=== PATIENT | female | born 1970 | race Caucasian/White ===

== ENCOUNTER 2017-11-29 15:27 | Observation (INO) | payer OTHER ==
--- NOTE | 2017-11-29 15:30 | EDPHY ---
HPI/HX/ROS/PE/MDM Narrative: CHIEF COMPLAINT: Overdose HPI: The patient is a 47 y/o female with a history of anxiety arriving via EMS on an M1 hold placed by police after an overdose today. Per EMS the patient was found on the bathroom floor by a friend with an unlabeled bottle of alcohol next to her. When EMS arrived the patient admitted to taking 4 ER 60 mg Propranolol; however there are 5 Propranolol tablets missing from the bottle. It is unknown when she ingested these, but friends and family believe it could have been this morning or at 14:45, 45 minutes ago. EMS reports that the patient had normal vital signs with a blood pressure of 108/76. Upon my examination she states she feels "like hell". She admits to taking "maybe 4 Propranolol" but then states she only took "1 this morning". She also had a bottle of 2 mg Alprazolam next to her, but all of the tablets are accounted for. REVIEW OF SYSTEMS: Unable to obtain due to patient's current intoxicated state. PMH: Anxiety SOCIAL HISTORY: Going through a divorce, lives in [place] PHYSICAL EXAM: General: Patient appears intoxicated, is awake and talking, in no acute distress. ENT: Eyes are normal to inspection. ENT inspection normal. Neck: Normal inspection. Full range of motion. Respiratory: No respiratory distress. Breath sounds normal bilaterally. Cardiovascular: Regular rate and rhythm. Strong peripheral pulses. Normal cap refill. Abdomen: The abdomen is nontender to palpation. There are no peritoneal signs. There are normal bowel sounds. Back: Normal to inspection. No tenderness to palpation. Skin: Normal color. No rash. Warm and dry. Extremities: Normal appearance. Full range of motion. Neuro: Groggy. Normal motor function. Normal sensory function. Psych: Admits to self harm. Emotional affect. ED Course: 1527: I met EMS upon arrival 1533: EKG was ordered and interpreted by myself. Please see [facility] system for official reading. 1540: Patient admits to self harm by intentionally taking possibly 5 tabs of 60 mg ER Propranolol and appears intoxicated. She will need to be admitted to the ICU. 1615: Patient's blood alcohol level is 499. Her troponin is negative. 1635: I spoke with Poison Control regarding patient. The patient's case number is #[id number]. 1640: Consulted with hospitalist service, Dr. Cordon accepts admission of this patient. MDM: I personally spent a total of 45 minutes of critical care time in obtaining history, performing a physical exam, bedside monitoring of interventions, collecting and interpreting tests and discussion with consultants, and discussion with as well as obtaining further history from family members but not including time spent performing procedures. This time was exclusive of any involvement by Physician Parts Order And Stock Clerk. 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 This patient presents with intentional overdose of alcohol and extended release propranolol . She is currently showing no signs of beta-marilu effect, but given uncertainty of timing of ingestion and extended release tablets, she will need to be closely watched in the ICU before she can be medically cleared. - Data Points Laboratory Results: Laboratory Results 11/29/17 15:39 11/29/17 15:39 11/29/17 11/29/17 11/29/17 16:28 16:25 15:39 WBC RBC Hgb Hct MCV MCH MCHC RDW Plt Count MPV Neut % (Auto) Lymph % (Auto) Travis % (Auto) Eos % (Auto) Baso % (Auto) Nucleat RBC Rel Count Absolute Neuts (auto) Absolute Lymphs (auto) Absolute Monos (auto) Absolute Eos (auto) Absolute Basos (auto) Absolute Nucleated RBC Immature Gran % Immature Gran # Sodium Potassium Chloride Carbon Dioxide Anion Gap BUN Creatinine Estimated GFR Glucose Calcium Total Bilirubin 0.6 mg/dL mg/dL (0.1-1.4) Conjugated Bilirubin 0.5 mg/dL mg/dL (0.0-0.5) Unconjugated Bilirubin 0.1 mg/dL mg/dL (0.0-1.1) AST 125 IU/L H IU/L (14-46) ALT 65 IU/L H IU/L (9-52) Alkaline Phosphatase 80 IU/L IU/L (38-126) POC Troponin I 0.00 ng/mL ng/mL (0.00-0.08) Total Protein 7.4 g/dL g/dL (6.3-8.2) Albumin 4.4 g/dL g/dL (3.5-5.0) Beta HCG, Qual NEGATIVE Salicylates Acetaminophen Ethyl Alcohol 11/29/17 11/29/17 15:39 15:39 WBC 4.93 10^3/uL 10^3/uL (3.80-9.50) RBC 4.18 10^6/uL 10^6/uL (4.18-5.33) Hgb 14.4 g/dL g/dL (12.6-16.3) Hct 42.0 % % (38.0-47.0) MCV 100.5 fL H fL (81.5-99.8) MCH 34.4 pg H pg (27.9-34.1) MCHC 34.3 g/dL g/dL (32.4-36.7) RDW 12.4 % % (11.5-15.2) Plt Count 210 10^3/uL 10^3/uL (150-400) MPV 8.9 fL fL (8.7-11.7) Neut % (Auto) 44.7 % % (39.3-74.2) Lymph % (Auto) 42.0 % % (15.0-45.0) Travis % (Auto) 8.9 % % (4.5-13.0) Eos % (Auto) 2.6 % % (0.6-7.6) Baso % (Auto) 1.4 % % (0.3-1.7) Nucleat RBC Rel Count 0.0 % % (0.0-0.2) Absolute Neuts (auto) 2.20 10^3/uL 10^3/uL (1.70-6.50) Absolute Lymphs (auto) 2.07 10^3/uL 10^3/uL (1.00-3.00) Absolute Monos (auto) 0.44 10^3/uL 10^3/uL (0.30-0.80) Absolute Eos (auto) 0.13 10^3/uL 10^3/uL (0.03-0.40) Absolute Basos (auto) 0.07 10^3/uL 10^3/uL (0.02-0.10) Absolute Nucleated RBC 0.00 10^3/uL 10^3/uL (0-0.01) Immature Gran % 0.4 % % (0.0-1.1) Immature Gran # 0.02 10^3/uL 10^3/uL (0.00-0.10) Sodium 140 mEq/L mEq/L (135-145) Potassium 4.1 mEq/L mEq/L (3.3-5.0) Chloride 104 mEq/L mEq/L (97-110) Carbon Dioxide 24 mEq/l mEq/l (22-31) Anion Gap 12 mEq/L mEq/L (8-16) BUN 8 mg/dL mg/dL (7-23) Creatinine 0.7 mg/dL mg/dL (0.6-1.0) Estimated GFR > 60 Glucose 77 mg/dL mg/dL (70-100) Calcium 9.1 mg/dL mg/dL (8.5-10.4) Total Bilirubin Conjugated Bilirubin Unconjugated Bilirubin AST ALT Alkaline Phosphatase POC Troponin I Total Protein Albumin Beta HCG, Qual Salicylates < 1.0 mg/dL L mg/dL (2.0-20.0) Acetaminophen < 10 mcg/mL L mcg/mL (10-30) Ethyl Alcohol 499 mg/dL H* mg/dL (0-10) Medications Given: Discontinued Medications Sodium Chloride (Ns) 1,000 mls @ 0 mls/hr IV EDNOW ONE; Wide Open PRN Reason: Protocol Stop: 11/29/17 15:33 Last Admin: 11/29/17 16:01 Dose: 1,000 mls Point of Care Test Results: Chemistry 11/29/17 16:28 POC Troponin I 0.00 ng/mL ng/mL (0.00-0.08) General Time Seen by Provider: 11/29/17 15:27 Initial Vital Signs: Initial Vital Signs Temperature (C) 37.0 C 11/29/17 15:54 Heart Rate 72 11/29/17 15:54 Respiratory Rate 16 11/29/17 15:54 Blood Pressure 117/79 11/29/17 15:54 O2 Sat (%) 85 L 11/29/17 15:54 O2 Delivery Mode Nasal Cannula O2 (L/minute) 2 Allergies/Adverse Reactions: No Known Allergies Allergy (Unverified 11/29/17 15:53) Home Medications: Medication Instructions Recorded ALPRAZolam [Xanax] 1 mg PO BID PRN 11/29/17 Propranolol Sr [Inderal LA 60mg 60 mg PO DAILY 11/29/17 (*)] chlordiazePOXIDE [Librium 25 mg 25 mg PO TID #10 cap 11/30/17 (*)] Departure - Departure Disposition: [facility] Clinical Impression: Propranolol overdose Qualifiers: Encounter type: initial encounter Injury intent: intentional self-harm Qualified Code(s): T44.7X2A - Poisoning by beta-adrenoreceptor antagonists, intentional self-harm, initial encounter Alcohol intoxication Qualifiers: Complication of substance-induced condition: with delirium Qualified Code(s): F10.921 - Alcohol use, unspecified with intoxication delirium Condition: Good Report Scribed for: Musa Renae Report Scribed by: Kyara Bazzi Date of Report: 11/29/17 Time of Report: 15:31 Physician Review and Approval Statement: Portions of this note were transcribed by an ED scribe. I personally performed the history, physical exam, and medical decision making; and confirm the accuracy of the information in the transcribed note.
[2017-11-29] MEDS ORDERED: NS 1,000 ML IV ONE (15:32)
--- NOTE | 2017-11-29 15:35 | CPEKG ---
Heart Rate: 64 RR Interval: 938 P-R Interval: 164 QRSD Interval: 86 QT Interval: 436 QTC Interval: 450 P [place]: 38 QRS [place]: 43 T Wave [place]: 67 EKG Severity - NORMAL ECG - EKG Impression: SINUS RHYTHM Electronically Signed By: Musa Renae 30-Nov-2017 17:00:48
[2017-11-29 15:47] LABS: PLATELET COUNT 210 10^3/uL (150-400)
[2017-11-29] MEDS ORDERED: ONDANSETRON DISINTEGRATING 4 MG TAB PO PRN (18:29)
[2017-11-29] MEDS ORDERED: ACETAMINOPHEN 325 MG TAB PO PRN (18:29)
[2017-11-29] MEDS ORDERED: ALBUTEROL 3 ML DEYVIAL IH PRN (18:29)
[2017-11-29] MEDS ORDERED: LORazepam 0.5 MG TAB PO PRN (18:29)
[2017-11-29] MEDS ORDERED: PROMETHAZINE HCL 25 MG/ML INJ IVP PRN (18:29)
[2017-11-29] MEDS ORDERED: oxyCODONE IR 5 MG TAB PO PRN (18:29)
[2017-11-29] MEDS ORDERED: ONDANSETRON 4 MG/2 ML VIAL IVP PRN (18:29)
[2017-11-29] MEDS ORDERED: LORazepam 2 MG/ML INJ IVP PRN (18:29)
[2017-11-29] MEDS: NS 1,000 ML IV SCH (19:15)
--- NOTE | 2017-11-29 19:29 | PDGENHP ---
History and Physical - Chief Complaint "my mother keeps talking and talking" - History of Present Illness 47 yo F with hx of etoh abuse and anxiety and depression per chart review presenting with reportedly intentional alcohol and propranolol overdose as part of a suicide attempt. At the time of my evaluation patient is intoxicated and belligerent and will not provide any information other than she feels her mother keeps "talking and talking" and that she is "fine." Patients mother is not present at bedside currently. Patient denies any pain, any sob, any nausea or vomiting. She denies active suicidality. History Information - Allergies/Home Medication List Allergies/Adverse Reactions: No Known Allergies Allergy (Unverified 11/29/17 15:53) Home Medications: ALPRAZolam [Xanax] 1 mg PO BID PRN 11/29/17 [Last Taken Unknown] Propranolol Sr [Inderal LA 60mg (*)] 60 mg PO DAILY 11/29/17 [Last Taken ] I have personally reviewed and updated: family history, medical history, social history, surgical history - Past Medical History psychiatric history - Surgical History Additional surgical history: none per chart review - Family History Additional family history: none noted per chart review, patient unable to provide details - Social History Smoking Status: Never smoked Alcohol Use: Heavy Drug Use: Other (unknown) Additional social history: Patient has told nursing she has 5 children, her living situation is otherwise unclear, she reports being surprised that she is in [place] currently Review of Systems Review of Systems: limited by patients intoxication ROS: 10pt was reviewed & negative except for what was stated in HPI & below Physical Exam Physical Exam: Temp Pulse Resp BP Pulse Ox 36.9 C 76 20 101/60 90 L 11/29/17 18:44 11/29/17 19:00 11/29/17 19:00 11/29/17 19:00 11/29/17 19:00 O2 (L/minute) 2 Constitutional: no apparent distress, appears nourished, unkempt Eyes: PERRL, anicteric sclera Ears, Nose, Mouth, Throat: moist mucous membranes Cardiovascular: regular rate and rhythym, No edema Respiratory: no respiratory distress, no rales or rhonchi Gastrointestinal: normoactive bowel sounds, soft, non-tender abdomen Skin: warm Musculoskeletal: full muscle strength Neurologic: AAOx3 Psychiatric: depressed, flat affect, other (argumentative) Lab Data & Imaging Review 11/29/17 15:39 11/29/17 15:39 WBC 4.93 10^3/uL (3.80-9.50) 11/29/17 15:39 RBC 4.18 10^6/uL (4.18-5.33) 11/29/17 15:39 Hgb 14.4 g/dL (12.6-16.3) 11/29/17 15:39 Hct 42.0 % (38.0-47.0) 11/29/17 15:39 MCV 100.5 fL (81.5-99.8) H 11/29/17 15:39 MCH 34.4 pg (27.9-34.1) H 11/29/17 15:39 MCHC 34.3 g/dL (32.4-36.7) 11/29/17 15:39 RDW 12.4 % (11.5-15.2) 11/29/17 15:39 Plt Count 210 10^3/uL (150-400) 11/29/17 15:39 MPV 8.9 fL (8.7-11.7) 11/29/17 15:39 Neut % (Auto) 44.7 % (39.3-74.2) 11/29/17 15:39 Lymph % (Auto) 42.0 % (15.0-45.0) 11/29/17 15:39 Hopkins % (Auto) 8.9 % (4.5-13.0) 11/29/17 15:39 Eos % (Auto) 2.6 % (0.6-7.6) 11/29/17 15:39 Baso % (Auto) 1.4 % (0.3-1.7) 11/29/17 15:39 Nucleat RBC Rel Count 0.0 % (0.0-0.2) 11/29/17 15:39 Absolute Neuts (auto) 2.20 10^3/uL (1.70-6.50) 11/29/17 15:39 Absolute Lymphs (auto) 2.07 10^3/uL (1.00-3.00) 11/29/17 15:39 Absolute Monos (auto) 0.44 10^3/uL (0.30-0.80) 11/29/17 15:39 Absolute Eos (auto) 0.13 10^3/uL (0.03-0.40) 11/29/17 15:39 Absolute Basos (auto) 0.07 10^3/uL (0.02-0.10) 11/29/17 15:39 Absolute Nucleated RBC 0.00 10^3/uL (0-0.01) 11/29/17 15:39 Immature Gran % 0.4 % (0.0-1.1) 11/29/17 15:39 Immature Gran # 0.02 10^3/uL (0.00-0.10) 11/29/17 15:39 Sodium 140 mEq/L (135-145) 11/29/17 15:39 Potassium 4.1 mEq/L (3.3-5.0) 11/29/17 15:39 Chloride 104 mEq/L (97-110) 11/29/17 15:39 Carbon Dioxide 24 mEq/l (22-31) 11/29/17 15:39 Anion Gap 12 mEq/L (8-16) 11/29/17 15:39 BUN 8 mg/dL (7-23) 11/29/17 15:39 Creatinine 0.7 mg/dL (0.6-1.0) 11/29/17 15:39 Estimated GFR > 60 11/29/17 15:39 Glucose 77 mg/dL (70-100) 11/29/17 15:39 Calcium 9.1 mg/dL (8.5-10.4) 11/29/17 15:39 Total Bilirubin 0.6 mg/dL (0.1-1.4) 11/29/17 16:25 Conjugated Bilirubin 0.5 mg/dL (0.0-0.5) 11/29/17 16:25 Unconjugated Bilirubin 0.1 mg/dL (0.0-1.1) 11/29/17 16:25 AST 125 IU/L (14-46) H 11/29/17 16:25 ALT 65 IU/L (9-52) H 11/29/17 16:25 Alkaline Phosphatase 80 IU/L (38-126) 11/29/17 16:25 POC Troponin I 0.00 ng/mL (0.00-0.08) 11/29/17 16:28 Total Protein 7.4 g/dL (6.3-8.2) 11/29/17 16:25 Albumin 4.4 g/dL (3.5-5.0) 11/29/17 16:25 Beta HCG, Qual NEGATIVE 11/29/17 15:39 Salicylates < 1.0 mg/dL (2.0-20.0) L 11/29/17 15:39 Acetaminophen < 10 mcg/mL (10-30) L 11/29/17 15:39 Ethyl Alcohol 499 mg/dL (0-10) H* 11/29/17 15:39 Visualized and Interpreted EKG results: Yes EKG Interpretation: Positive for: normal sinsus rhythm Assessment & Plan Assessment: Alcohol intoxication (Acute) Propranolol overdose (Acute) 47 yo F with PMH of etoh abuse, depression/anxiety presents s/p SA with etoh/BB overdose # intentional overdose: reportedly patient drank a large amount of alcohol and took 5 tabs of extended release propranolol. At this time other than acute intoxication she has no physical exam abnormalities. She is in NSR with rate in the 60s. Half life is 8-11 hours and therefore she will be watched overnight in ICU on telemetry, poison control has been notified and are available to answer any questions--case number noted in ER report # suicide attempt: as above, patient currently on M1 hold, unable to assess severity of attempt and continued SI given her acute intoxication, when medically cleared she will need TLC eval # etoh abuse: unable to obtain more history on her use pattern at this time, will monitor for s/s of withdrawal, BAL on arrival 499 # transaminitis: suspect mild alc hep in setting of above, will repeat LFTs in am # observation status, if no overnight events and patient cleared by TLC, she may discharge in am Patient new to my care. Care plan reviewed with ER doctor including plans for tele monitoring overnight.
[2017-11-30] MEDS: NS 1,000 ML IV SCH (06:19)
[2017-11-30 06:20] LABS: PLATELET COUNT 140 10^3/uL (150-400)
[2017-11-30] MEDS ORDERED: D50W 25 GM/50 ML SYR IVP ONE (06:41)
[2017-11-30] MEDS ORDERED: D5W NS 1,000 ML IV SCH (06:45)
[2017-11-30] MEDS ORDERED: PROPRANOLOL SR 60 MG CAP PO SCH (11:15)
[2017-11-30] MEDS ORDERED: chlordiazePOXIDE 25 MG CAP PO ONE (11:20)
[2017-11-30 11:36] VITALS: BP 129/73
--- NOTE | 2017-11-30 14:01 | GDS ---
[f rep st] DISCHARGE SUMMARY DISCHARGE DIAGNOSES: 1. Intentional overdose of alcohol and propranolol. 2. Alcohol abuse. 3. Depression and anxiety. HISTORY OF PRESENT ILLNESS: For details please see the history and physical dated November 29, 2017. In brief, the patient is a 47-year-old female with history of anxiety, depression, and alcohol abuse who presented to the emergency department after she intentionally overdosed on alcohol and propranolo l after her left her. She was admitted to the hospital for further management. HOSPITAL COURSE: The patient was admitted to the intensive care unit on an M1 hold. Her blood alcoh ol on arrival was 499. She had no issues with bradycardia. She had a mild transaminitis, likely rel ated to alcohol-induced hepatitis. This remained stable. In the morning she is mentating clearly, t ree is a bit tremulous. She states she has never been suicidal, but she admits to self-medicating with alcohol and using alcohol and propranolol yesterday to numb her pain. She does acknowledge this is a form of self-harm. She is medically cleared and TLC evaluation ensued. They recommended she t agueda to inpatient Behavioral Health unit for ongoing treatment of her anxiety, depression and alco hol abuse. I will provide a few days of p.o. Librium to mitigate any potential withdrawal issues. S he can also continue her usual dose of propranolol for her anxiety and tremor, although must proceed with caution given her inclination to take extra propranolol. DISPOSITION: Patient is discharged to inpatient Behavioral psych in stable condition. DISCHARGE MEDICATIONS: Please see [facility] for complete updated outpatient. New medications at discharge include Librium 25 mg p.o. 3 times daily for 2 days, then 25 mg p.o. twi ce daily for 2 days then off. She can continue p.r.n. Xanax and propranolol, her previous outpatient medications if deemed safe by her psychiatry team. /[id number]/MODL
== END 2017-11-30 12:45 ==
LOC: EEVIPCON 16:44 → INTOOBSV 16:44 → F2N 18:31
PROVIDERS: ADMIT Internal Medicine; ATTEND Hospitalist
DX: T44.7X2A Poisoning by beta-adrenoreceptor antagonists, intentional self-harm, initial encounter (principal); T51.0X2A Toxic effect of ethanol, intentional self-harm, initial encounter; F10.10 Alcohol abuse, uncomplicated; F32.9 Major depressive disorder, single episode, unspecified; F41.9 Anxiety disorder, unspecified
CPT/HCPCS: 93005; G0378; 80305; 84484-PO; G0480

== ENCOUNTER 2017-11-30 13:10 | Inpatient (IN) | payer OTHER ==
[2017-11-30] MEDS ORDERED: ACETAMINOPHEN 325 MG TAB PO PRN (13:40)
[2017-11-30] MEDS ORDERED: NICOTINE POLACRILEX 2 MG GUM B PRN (13:40)
[2017-11-30] MEDS ORDERED: MAG HYDROX/AL HYDROX/SIMETH 30 ML UDCUP PO PRN (13:42)
[2017-11-30] MEDS ORDERED: PROMETHAZINE HCL 25 MG TAB PO PRN (13:42)
[2017-11-30] MEDS ORDERED: chlordiazePOXIDE 25 MG CAP PO PRN (13:42)
[2017-11-30] MEDS ORDERED: MAGNESIUM HYDROXIDE 30 ML UDCUP PO PRN (13:42)
[2017-11-30] MEDS ORDERED: PROPRANOLOL HCL 20 MG TAB PO SCH (14:15)
--- NOTE | 2017-11-30 15:21 | ASMTBHMTP ---
Master Treatment Plan Master Treatment Plan Answers: Depressed Mood without for: Suicidal Ideation Date: 11/30/2017 Diagnosis on Admission: Propranolol overdose Expected length of stay: 3-5 Days Reason for admission: Notes: Propranolol overdose Patient's stated presenting problems: Notes: left three weeks ago and emptied bank accounts. Was prescribed propranolol by psychiatrist for tremors. Has been self-medicating with alcohol recently. started harassing through text messages, and pt. took 5x amount of propranolol with alcohol. Family then brought pt. to hospital. Patient's goals for treatment: Notes: Work on self care Needs to learn how to carve out "me time". Patient's strengths: Notes: Outgoing personality, trustworthy, and dive in and get things done. Identify supports outside of hospital: Notes: Friend Kate, friend Anel, Friend/coworker Amir, and dad Discharge criteria: Notes: Suicidal ideation will resolve and patient will have a plan to safely manage recurrent suicidal ideation. Initial disposition plan/considerations: Notes: It depends. Needs to learn how to carve out "me time". Master Treatment Plan Required Signatures Psychiatrist signature: Answers: Psychiatrist: RN on-shift signature: Answers: RN: Patient signature: Answers: Patient: Date Signed: 11/30/2017 02:44 PM Electronically Signed By:Pretty Keating
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
[2017-11-30] MEDS: chlordiazePOXIDE 25 MG CAP PO SCH ×3 (16:04→21:17)
--- NOTE | 2017-11-30 17:38 | BAPA ---
[f rep st] ADMISSION PSYCHIATRIC ASSESSMENT DATE OF SERVICE: 11/30/2017 CHIEF COMPLAINT: "Ended up in the hospital because I drank and took 5 propranolol." HISTORY OF PRESENT ILLNESS: Per [facility] evaluation dated 11/30/2017, the patient is currently on an M1 hold. The M1 hold start date was 11/29/2017 at 2:55 p.m. The patient stated to the [facility] biogeographer, "I wasn't trying to kill myself. I was trying to numb emotional pain. My left 2 weeks ago and has not been back." The patient was admitted involuntary and is on an M1 hold due to being a danger to herself and is hospitalized for safety, crisis stabilization, and medication evaluation. The patient describes the circumstances that led to current hospitalization as her left her about 3 weeks ago. The patient reports it is her 's MO to just leave because he knows this is a big trigger to her. The patient states that asked for divorce. The patient reports she was dealing with this stress by drinking. States that she did drink too much and did take 5 tablets of propranolol. However, patient states she was not making an attempt to end her life. The patient reports current mental illness as none. The patient states current alcohol and/or substance abuse that contributed to current hospitalization as alcohol. The patient denies any current psychiatric symptoms. The patient is currently experiencing withdrawal symptoms from alcohol and does currently have bilateral hand tremors. The patient reports she also feels somewhat anxious due to the current withdrawal. The patient describes abuse history as none. The patient describes current psychiatric symptoms are impacting managing her day-to-day life described as, she is currently taking care of household responsibilities without difficulty. Reports she is currently taking a break from work. States she is socializing with friends and she currently has discord with her . The patient reports hobbies as running, skiing, snowboarding and hiking, and states she is generally satisfied with her life. The patient denies current suicidal ideation , denies current homicidal ideation, and denies current self-injurious ideation. The patient reports protective factors or reasons to live as her children. She reports her future goals as not to self medicate with alcohol, and she describes her family as remains emotional support system. The patient reports she currently sees a primary care provider and she also sees a psychiatrist for Therapy. PAST PSYCHIATRIC HISTORY: The patient describes the following psychiatric history: Patient reports past diagnosis of generalized anxiety disorder. Patient reports she has never been on psychotropic medications. Describes a history of seeing a primary care provider and a psychiatrist. Patient does report history of hospitalization due to bulimia. Reports this occurred about 25 years ago while she was in college. The patient denies any history of withdrawal from drugs or alcohol. Denies history of suicide ideation or suicide attempts. The patient denies history of self-injurious behavior. ALLERGIES: No known drug allergies. CURRENT MEDICATIONS: When the patient arrived on this unit she was provided a prescription of Librium 25 mg p.o. three times daily and that medication will be continued here. PAST MEDICAL HISTORY: The patient describes the following: The patient reports she has no reason to believe she could be . States that she had a hysterectomy. The patient denies any neurological history, any major illnesses or any major hospitalizations. SOCIAL HISTORY: The patient describes the following social history: The patient reports she was born in [place] and her parents were at the time of her and are still today. The patient reports she was raised the majority of her life in [place] by both parents. The patient describes current living in [place], [place] with her and her children. The patient states she met all developmental milestones growing up and reports no history of learning delays or difficulties. The patient describes her sexual orientation as heterosexual. States she is currently for 6 years. Has been in the past twice and twice. The patient reports that she has 5 children. 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 The patient reports highest level of education as a graduate degree in exercise physiology. The patient reports no duty in her history. Describes her orthodoxy and spiritual practice as Sabianism, and states she is currently not facing any legal charges. SUBSTANCE USE HISTORY: The patient reports she drinks about 5 times per week. Reports sometimes she drinks to resolve the tremors she experiences. States she gets drunk at least 1 time per week and usually drinks about 3 drinks per occasion. Patient denies all other illicit substances, including nicotine, marijuana, meth, cocaine, crack, heroin, prescription medication abuse, and all other substances of abuse. FAMILY PSYCHIATRIC HISTORY: The patient describes the following family psychiatric history: The patient reports her father suffered from general anxiety disorder and panic disorder. The patient reports no history of anyone in her family attempting or completing suicide, and reports no family history of substance or alcohol abuse. ADMISSION LABORATORIES AND STUDIES: CBC from the ER: Red blood cells low at 3.80, MCV elevated at 101.6, MCH elevated at 35, platelet count low at 140, neutrophils percentage high at 75.3%, lymphocyte percentage low at 14.8%, absolute lymphocytes auto low at 0.96. Chemistry: test negative, carbon dioxide low at 19, glucose low at 57. Point of care glucose high at 200 , calcium is low at 8, total bilirubin elevated at 1.5, AST elevated at 113 and ALT elevated at 60. Toxicology non-negative for benzodiazepines, non-negative for marijuana, and ethyl alcohol was elevated at 499. MENTAL STATUS EXAM: The patient is a well-nourished female looking older than chronological age. The patient's attire is appropriate, dress is casual and neat and clean. Grooming status is appropriate and clean. Ambulation is independent. Gait is normal and coordinated. Posture is normal and relaxed. Eye contact is appropriate and adequate. Motor activity is appropriate with purposeful organized and coordinated movements. Some involuntary movements noted as the patient has bilateral hand tremors. Attitude is cooperative and friendly. The patient appears attentive and relates well to this interviewer. Language production is spontaneous. Rate, rhythm and volume are normal. Articulation is clear. The patient reports mood as anxious with adequately arranged and congruent affect. The patient's thought process is linear and logical with no loose associations, tangential thought, thought blocking, concrete thinking, or any other signs of formal thought disorder. The patient does not report suicidal, homicidal thoughts, ideas, or plans. The patient denies auditory visual hallucinations. The patient denies delusions. The patient does not appear to be attending to internal stimuli. The patient is oriented to person, place, time, and situation. The patient's attention and concentration are adequate. The patient's insight and judgment are impaired. There is no evidence of gross cognitive dysfunction at any point during the interview, and no evidence of apparent dysfunction in recent or remote memory noted. DIAGNOSES: 1. Alcohol use disorder, severe. 2. General anxiety disorder. 3. Alcohol intoxication FORMULATION: This is a 47-year-old female, , employed, living in [place], [place] with her and children, who presents to the hospital involuntary due to risk of being a harm to herself and is currently on an M1 hold. The patient requires continued inpatient care because of current alcohol withdrawal and recent crisis that led to this hospitalization. The patient presents with problems of generalized anxiety disorder, alcohol use disorder and mood instability that have been steadily increasing over the past several weeks. The exacerbation of symptoms was preceded by the patient's leaving her and asking for a divorce. The patient has a past psychiatric history of generalized anxiety disorder and reports that this has never been treated with psychotropic medications. Based on the patient's history and current presentation, her diagnoses are generalized anxiety disorder and alcohol use disorder, severe. The patient is at a moderate to high suicide safety risk due to current alcohol withdrawal, anxiety, recent crisis. Protective factors while hospitalized include ongoing safety checks, active involvement in treatment, and support from our treatment team. The patient could benefit from inpatient hospitalization for safety, crisis stabilization, and medication evaluation. PLAN: (1) Psychotropic medications: Librium 25 mg p.o. three times daily, CIWA protocol, Librium 25-50 mg q.4 hours p.r.n. for alcohol withdrawal. (2) Labs: A1c, fasting lipid panel, TSH. (3) Therapy: milieu and group (4) Further investigation including gathering information from patients relatives and review of past case records (5) Continued evaluation and monitoring will be ongoing during the course of patients inpatient hospitalization to inform treatment, to determine if adjustments in medication regimen may benefit patients symptoms, and for discharge planning (6) Safety plan and follow-up outpatient appointments to be established prior to discharge (7) Confer with inpatient treatment team regarding initial treatment plan (8) Review informed consent and recommendations for psychotropic medication treatment listed below now, during the course of hospitalization, and during discharge interview ESTIMATED LENGTH OF STAY: 1-3 days PSYCHOTROPIC MEDICATION TREATMENT INFORMED CONSENT and RECOMMENDATIONS: Review nature of condition, diagnosis, and prognosis. Review nature and purpose of psychotropic medication treatment. Review type of psychotropic medications being ordered. Review risk and benefits of psychotropic medication treatment. Review probable length of time will need to take medications. Review risk and benefits of not undergoing psychotropic medication treatment. Review alternative treatments to psychotropic medications. Review psychotropic medications contraindications, drug-drug interactions, side effects, and importance of reporting any side effects to a psychiatric provider or nurse during inpatient hospitalization, and upon discharge to patients psychiatric outpatient provider, primary care provider, or other health medicare insurance specialist. Review importance of asking a nurse, psychiatric provider, or primary care provider any questions or problems concerning the psychotropic medications. Verify patient understands the information that has been provided, and understands, accepts, and agrees to psychotropic medications. Review patients safety plan and importance of patient to communicate to staff while hospitalized if patient is ever a danger to self/others, or unable to care for self, and upon discharge, the importance for patient to contact [facility] or [facility], or go to the nearest emergency room, if patient is ever a danger to self/others, or unable to care for self. Recommend that upon discharge patient establish medication management treatment with a psychiatric provider, establishes routine therapy appointments, and follow-up with primary care provider. Verify patient understands and agrees to these recommendations. /[id number]/MODL MTDD
[2017-12-01] MEDS: FOLIC ACID 1 MG TAB PO SCH (09:02)
[2017-12-01] MEDS: THIAMINE HCL 100 MG TAB PO SCH (09:02)
[2017-12-01] MEDS: SERTRALINE HCL 25 MG TAB PO SCH (09:02)
[2017-12-01] MEDS: chlordiazePOXIDE 25 MG CAP PO SCH ×2 (09:02→21:32)
[2017-12-01] MEDS: MULTIVITAMINS 1 EACH TAB PO SCH (09:02)
--- NOTE | 2017-12-01 09:19 | PDMN ---
Medical Necessity Medical necessity: pt admitted on M1 hold, danger to self, crisis stabilization , anxiety med evaluation.
--- NOTE | 2017-12-01 11:43 | SOAPPROG ---
SOAP Progress Note Assessment/Plan: Assessment: FREDRICK and ETOH withdrawal. Patient is improving (see subjective/objective note). Patient is not safe to discharge at this time as patient continues to exhibit and express signs of withdrawal and anxiety. Patient requires continued inpatient care for observation, and requires inpatient level of care to stabilize in order to no longer be a danger to herself. Patient could benefit from continued inpatient hospitalization for crisis stabilization, safety, and medication evaluation. Plan: Review psychotropic medication treatment informed consent and recommendations. After reviewing options, risk and benefits, patient agrees to continue medications with the following changes. Medication changes include starting trial of sertraline 25 mg po QAM for anxiety and Trazodone 100 mg po QHS for insomnia related to anxiety. No other medication changes at this time as more time is needed to determine ongoing tolerability and efficacy. Plan is to continue to observe patient for response and side effects from medications, and ongoing monitoring and evaluation. Next steps are for patient to meet with child care team lead to plan a safe discharge plan and establish outpatient services for ongoing treatment. Consider discharge on Thursday if patient is in stable condition, safe, and has a safe discharge plan. PSYCHOTROPIC MEDICATION TREATMENT INFORMED CONSENT and RECOMMENDATIONS: Review nature of condition, diagnosis, and prognosis. Review nature and purpose of psychotropic medication treatment. Review type of psychotropic medications being ordered. Review risk and benefits of psychotropic medication treatment. Review probable length of time patient will need to take medications. Review risk and benefits of not undergoing psychotropic medication treatment. Review alternative treatments to psychotropic medications. Review psychotropic medications contraindications, drug-drug interactions, side effects, and importance of reporting any side effects to a psychiatric provider or nurse during inpatient hospitalization, and upon discharge to patients psychiatric outpatient provider, primary care provider, or other health palliative care nurse. Review importance of asking a nurse, psychiatric provider, or primary care provider any questions or problems concerning the psychotropic medications. Verify patient understands the information that has been provided, and understands, accepts, and agrees to psychotropic medications. Review patients safety plan and importance of patient to report to staff while hospitalized if patient is ever a danger to self/others, or unable to care for self, and upon discharge, the importance for patient to contact [facility] or 911, or go to the nearest emergency room, if patient is ever a danger to self/others, or unable to care for self. Recommend that upon discharge patient establish medication management treatment with a psychiatric provider, establishes routine therapy appointments, and follow-up with primary care provider. Verify patient understands and agrees to these recommendations. 12/01/17 11:45 Subjective: Following up with patient for evaluation of anxiety, ETOH withdrawal, and safety. Patient reports, "Tremors are better. Patient expresses the following psychiatric symptoms: anxious and did not sleep well last night. "Otherwise, except for the shakiness, feeling pretty good." Objective: Vital Signs Temp Pulse Resp BP Pulse Ox 36.6 C 65 16 136/78 H 97 12/01/17 10:05 12/01/17 10:05 12/01/17 10:05 12/01/17 10:12/01/17 10:05 NURSING REPORT: Consulted with nursing for update on patients progress in treatment. Nurses report patient is engaged in treatment, is attending groups, slept 8.5 hours, expresses the following psychiatric symptoms: anxiety, exhibits the following psychiatric symptoms: anxious, is eating all meals, is taking medications as prescribed with no report of side effects, with no S/S of EPS/akathisia, and denies SI/HI, A/V hallucinations. Nurses report last CIWA score was 4, and this was due to patients bi-lateral tremors. Nurses report no other S/S ETOH withdrawal. 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 Discuss options. Patient reports improved bi-lateral hand tremor. The patient presents casually dressed and with good hygiene, and looks stated age. Patient is sitting, posture is upright, and position is relaxed. Patient appears awake, alert, and responds appropriately and reasonably during interview. Patient is engaged, relates well to interviewer, and emotional facial expression is appropriate to situation and changes appropriately with topic. Patient is cooperative, makes comfortable eye contact, and movements are voluntary, deliberate, coordinated, and smooth and even with no inappropriate movements. Patient presents with slight bi-lateral hand tremor, and reports tremor is getting better. Patient makes laryngeal sounds effortlessly and shares conversation appropriately; pace of conversation is appropriate, and stream of talking is fluent; articulation is clear and understandable; word choice is effortless and appropriate for education level; completes sentences, occasionally pausing to think; rate and volume are appropriate for interview and setting. Patient reports mood as anxious. Patients affect is stable with full variable range, congruent with mood, and appropriate to speech and circumstances. Patient has linear and logical thinking, with no loose associations, tangential thought, thought blocking, concrete thinking, or any other signs of formal thought disorder. Patient denies suicidal and homicidal ideation, and denies hallucinations and delusions. Patient appears to be a reliable historian with sound judgement and good insight into current condition. Patient has no apparent dysfunction in recent or remote memory noted, and no evidence of gross cognitive dysfunction noted at any point during the interview. - Time Spent With Patient Time Spent With Patient: 30 minutes, met with patient individually. - Pending Discharge Pending Discharge Within 24 Hours: Yes Pending Discharge Within 48 Hours: No Pending Discharge Date: 12/02/17 Pending Discharge Time: 11:00 ICD10 Worksheet Patient Problems: Problems Problem Status Onset Alcohol use disorder, severe, in controlled environment Acute Generalized anxiety disorder Acute Alcohol intoxication Acute Propranolol overdose Acute
--- NOTE | 2017-12-01 12:47 | BCON ---
[f rep ] BEHAVIORAL [facility] CONSULTATION INTERNAL MEDICINE CONSULTATION DATE OF CONSULTATION: 12/01/2017 REFERRING PHYSICIAN: Dr. You REASON FOR REFERRAL: Medical clearance for inpatient behavioral [facility] stay. HISTORY OF PRESENT ILLNESS: This patient was admitted from [facility] where she had a brief acute stay for alcohol intoxication and an overdose on propranolol as a suicide attempt. She was observed and did not seem to be showing any significant adverse effects other than alcohol withdrawal, and so she was transferred to inpatient [facility]. She currently is without any acute complaints. She denies symptoms of alcohol withdrawal, including no sweats other than having a tremor. PAST MEDICAL HISTORY: Benign essential tremor. PAST SURGICAL HISTORY: She has had a section. MEDICATIONS: Prior to admission, she had alprazolam and propranolol ER. ALLERGIES: There are no known drug allergies. SOCIAL HISTORY: She is . She is in the process of a divorce. She has a home in [place]. 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 She has a condominium in [place] as well and spends part of her time in [place], staying at the [employer] when she is working. She is a nonsmoker, and she has alcohol use, which has been heavier, especially over the past year related to relationship changes. FAMILY HISTORY: Noncontributory. REVIEW OF SYSTEMS: Other than tremor, she denies any symptoms of alcohol withdrawal. She is sleeping well. She is not in pain. She has no cough or dyspnea, no fevers or chills, no nausea, vomiting, constipation, or diarrhea. Otherwise, a 10-point review of systems is negative. PHYSICAL EXAM: VITALS: Blood pressure is 136/78, heart rate is 65, respiratory rate is 16, oxygen saturation is 97% on room air. Temperature is 36.6 degrees centigrade. Her weight is 59 kg for a body mass index of 21. GENERAL: This is a well-nourished, well-developed woman, appears her chronologic age, cooperative and in no acute distress. HEENT: Extraocular movements are intact. Pupils are equal, round, and reactive to light. Mucous membranes are moist. Dentition is in good condition. She has an uncrowded airway, Mallampati class 1. NECK: Supple. HEART: There is a regular rate and rhythm with no murmurs, rubs, or gallops. LUNGS: Clear to auscultation bilaterally. ABDOMEN: Benign. EXTREMITIES: There is no cyanosis, clubbing, or edema. NEUROLOGIC: She is alert and oriented x3. Cranial nerves 2-12 are grossly intact. There is no focal weakness, and sensation is intact to light touch. There is no tremor. LABORATORY STUDIES: During her hospitalization, CBC revealed an elevated MCV, which is consistent with alcohol use. She had a slightly low platelet count yesterday at 140; otherwise , CBC was overall within normal limits, and platelet count was normal the day before. Serum chemistry on hospital admission revealed a slightly low carbon dioxide at 19. Glucose was low at 57. Liver function tests showed slightly elevated ALT and AST at 65 and 125. These improved after 1 day on yesterday's testing with an AST of 113 and an ALT of 60. Troponin I was normal. Hemoglobin A1c was 4.9. Lipid panel revealed elevated triglycerides at 141. Cholesterol was high at 258; however, HDL was very high at 122. LDL was mildly elevated at 108. TSH was normal at 1.04, and beta hCG was negative for . Toxicology screen in the serum was negative for salicylates or acetaminophen. She had an ethyl alcohol level of 499, and toxicology in the urine was negative for benzodiazepines and for marijuana. ASSESSMENT/RECOMMENDATIONS: 1. Mental health issues pending further evaluation and management per Psychiatry and the mental health team. 2. Alcohol intoxication and alcohol withdrawal. She seems to be appropriately treated regarding withdrawal protocol, and this should continue until she is no longer showing any signs or symptoms of withdrawal. With a blood alcohol level of 499 mg/dL when tested in the emergency department, she likely has chronic high-level of alcohol use to be able to tolerate that level of toxicity. 3. Essential tremor. From her description of when she was most symptomatic, it likely was exacerbated by a mild alcohol withdrawal state in the morning when she would awaken with more tremor than she would have later in the day. She was counseled that her tremor might improve overall if she was able to reduce her alcohol use or become abstinent. Would continue propranolol as prescribed and also would consider whether trazodone and selective serotonin reuptake inhibitors have potential to worsen her tremor. This does not need to be addressed while she is on the inpatient rehabilitation unit, but can be addressed with her primary care provider and with outpatient Psychiatry. I see no medical contraindications to this patient's continued stay on the inpatient behavioral health unit or to any psychiatric medications or procedures. Thank you very much for including me in the care of this patient and please do not hesitate to contact me or the hospitalist service should there be need for further medical evaluation. /[id number]/MODL MTDD
--- NOTE | 2017-12-01 13:59 | ASMTBHDC ---
Notes Note: Notes: CC was able to confirm follow up appointments with client's provider Dr. Johns. See below: Client presents better than previous days. Follow up with: Dr. Gordy Johns [address] [place] [id number] Next Appt: ThursdayDecember 04 (12/04/17) at 12:15pm Date Signed: 12/01/2017 01:58 PM Electronically Signed By:Gurmeet Cook
[2017-12-01] MEDS ORDERED: traZODone 100 MG TAB PO SCH (21:00)
[2017-12-02 06:34] VITALS: BP 121/72
[2017-12-02] MEDS: FOLIC ACID 1 MG TAB PO SCH (08:41)
[2017-12-02] MEDS: MULTIVITAMINS 1 EACH TAB PO SCH (08:41)
[2017-12-02] MEDS: THIAMINE HCL 100 MG TAB PO SCH (08:41)
[2017-12-02] MEDS: SERTRALINE HCL 25 MG TAB PO SCH (08:41)
[2017-12-02] MEDS ORDERED: chlordiazePOXIDE 25 MG CAP PO SCH (09:00)
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
== END 2017-12-02 11:45 | disposition home or self-care (01) | DRG 880 ==
LOC: BBEH 13:10
PROVIDERS: ADMIT Psychiatry & Neurology Psychiatry; ATTEND Psychiatry & Neurology Psychiatry
DX: F41.1 Generalized anxiety disorder (principal); F10.230 Alcohol dependence with withdrawal, uncomplicated